=== PATIENT | female | born 1970 | race Caucasian/White ===

== ENCOUNTER 2019-04-07 15:31 | Inpatient (IN) ==
[2019-04-07] MEDS ORDERED: LEVOFLOXACIN INJ 750 MG in PREMIX 1 EACH IV STA (16:27)
[2019-04-07] MEDS ORDERED: methylPREDNISolone SOD SUC 125 MG/2 ML VIAL IV STA (16:27)
[2019-04-07] MEDS ORDERED: ALBUTEROL 2.5 MG/3 ML NEB RESP TX SCH (16:30)
[2019-04-07] MEDS ORDERED: METOPROLOL TARTRATE 5 MG/5 ML VIAL IV STA (16:33)
[2019-04-07 17:00] LABS: Basophils # 0.1 10*3/uL (0.0-0.2); Basophils % 0.4 % (0.0-0.8); Eosinophils # 0.1 10*3/uL (0.0-0.87); Eosinophils % 0.5 % (0.00-10.9); Hematocrit 47.9 VOL% (35.7-47.0); Hemoglobin 14.8 GM/DL (12.0-16.0); Immature Granulocytes % 1.3 %; Lymphocytes # 2.9 10*3/uL (1.4-4.0); Lymphocytes % 18.8 % (21.3-54.2); Mean Corpuscular HGB Conc 30.9 GM/DL (32-36); Mean Corpuscular Volume 88.7 FL (87-102); Mean Platelet Volume 11.6 FL (9.6-12.0); Platelet Count 379 T/CUMM (130-400); Red Cell Distribution Width 15.8 % (9.3-17.3); White Blood Count 15.6 T/CUMM (4-12)
[2019-04-07 17:08] LABS: PT Patient Result 11.3 SECS (9.6-12.2); Partial Thromboplastin Time 24.3 SECS (20.8-36.0)
[2019-04-07 17:16] LABS: Alanine Aminotransferase 174 U/L (13-56); Albumin 2.9 G/DL (3.4-5.0); Alkaline Phosphatase 109 U/L (45-117); Aspartate Amino Transferase 117 U/L (0-37); Blood Urea Nitrogen 24 MG/DL (7-18); Calcium 9.3 MG/DL (8.5-10.1); Estimated Glom Filtration Rate 98 ML/MIN; Glucose 97 MG/DL (74-106); Osmolality,Calculated 295.4 MOS/KG (273-304); Total Protein 8.4 G/DL (6.4-8.3); Troponin I < 0.015 NG/ML (0.00-0.045)
[2019-04-07 17:44] LABS: Apearance,Urine CLOUDY (Clear); Bacteria,Urine Moderate /HPF (Few); Bilirubin,Urine Negative (Negative); Blood, Urine Moderate mg/dL (Negative); Glucose,Urine (UA) Negative (Negative); Ketones,Urine Negative (Negative); Nitrite,Urine Positive (Negative); Protein,Urine >=500 MG/DL; RBC,Urine 17 /HPF (0-4); Urine Color Amber (Yellow); Urine Specific Gravity 1.011 (1.001-1.035); Urine Urobilinogen < 2.0 EU/DL (0.2-1.0); WBC,Urine 1133 /HPF (0-6)
[2019-04-07 17:48] LABS: Lymphocytes 16 % (20-55); Segmented Neutrophils 77 % (50-85)
[2019-04-07 17:49] LABS: Giant Platelets 1+; Platelet Estimate Adequate; Total Cells Counted 100
[2019-04-07] MEDS ORDERED: ONDANSETRON 4 MG/2 ML VIAL IV PRN (18:35)
[2019-04-07] MEDS: ALBUTEROL/IPRATROPIUM 3 ML NEB RESP TX SCH (19:15)
[2019-04-07] MEDS: DEXTROSE 5% NACL 0.45% 1,000 ML IV SCH (21:31)
[2019-04-07] MEDS: ENOXAPARIN 40 MG/0.4 ML SYRINGE SUBCUT SCH (21:31)
[2019-04-07] MEDS: tiZANidine 4 MG TABLET PO SCH (23:16)
[2019-04-07] MEDS: BACLOFEN 10 MG TABLET PO SCH (23:16)
[2019-04-07] MEDS: MEROPENEM 500 MG in SODIUM CHLORIDE 0.9% 100 ML IV SCH (23:16)
[2019-04-08] MEDS: ALBUTEROL/IPRATROPIUM 3 ML NEB RESP TX SCH ×4 (00:31→19:28)
[2019-04-08] MEDS: ACETAMINOPHEN 325 MG/10.15 ML UDCUP PO PRN ×2 (02:22→22:00)
[2019-04-08] MEDS: MEROPENEM 500 MG in SODIUM CHLORIDE 0.9% 100 ML IV SCH ×4 (03:47→21:47)
[2019-04-08 06:15] LABS: Basophils % 0.2 % (0.0-0.8); Hematocrit 40.4 VOL% (35.7-47.0); Hemoglobin 12.6 GM/DL (12.0-16.0); Immature Granulocytes % 1.6 %; Immature Granulocytes Absolute 0.18 #; Lymphocytes # 1.4 10*3/uL (1.4-4.0); Lymphocytes % 12.1 % (21.3-54.2); Mean Corpuscular HGB Conc 31.2 GM/DL (32-36); Mean Corpuscular Volume 88.6 FL (87-102); Mean Platelet Volume 11.4 FL (9.6-12.0); Monocytes % 8.3 % (1.7-12.7); Neutrophils % 77.8 % (38.7-73.9); Platelet Count 305 T/CUMM (130-400); Red Blood Count 4.56 MC/CUMM (3.8-5.5); Red Cell Distribution Width 15.6 % (9.3-17.3); White Blood Count 11.3 T/CUMM (4-12)
[2019-04-08 06:27] LABS: Calcium 8.5 MG/DL (8.5-10.1); Osmolality,Calculated 296.7 MOS/KG (273-304)
[2019-04-08 06:36] LABS: Hypochromasia 1+; Microcytosis 1+
[2019-04-08 06:37] LABS: Platelet Estimate Normal
[2019-04-08] MEDS: BACLOFEN 10 MG TABLET PO SCH ×3 (10:46→21:44)
[2019-04-08] MEDS: DEXTROSE 5% NACL 0.45% 1,000 ML IV SCH (10:48)
[2019-04-08] MEDS: AZITHROMYCIN INJ 500 MG in SODIUM CHLORIDE 0.9% 250 ML IV SCH (11:24)
[2019-04-08] MEDS ORDERED: INFLUENZA VIRUS VACCINE 0.5 ML SYRINGE IM ONE (11:43)
[2019-04-08] MEDS: ENOXAPARIN 40 MG/0.4 ML SYRINGE SUBCUT SCH (18:09)
[2019-04-08] MEDS: tiZANidine 4 MG TABLET PO SCH (21:44)
[2019-04-08] MEDS: NYSTATIN 500,000 UNIT/5 ML UDCUP SWISH/SWAL SCH (21:45)
[2019-04-09] MEDS: ALBUTEROL/IPRATROPIUM 3 ML NEB RESP TX SCH ×4 (00:30→19:59)
[2019-04-09] MEDS: MEROPENEM 500 MG in SODIUM CHLORIDE 0.9% 100 ML IV SCH ×4 (02:29→21:42)
[2019-04-09] MEDS: DEXTROSE 5% NACL 0.45% 1,000 ML IV SCH ×2 (02:29→19:39)
[2019-04-09 05:56] LABS: Basophils % 0.1 % (0.0-0.8); Eosinophils # 0.1 10*3/uL (0.0-0.87); Eosinophils % 0.5 % (0.00-10.9); Hematocrit 38.9 VOL% (35.7-47.0); Immature Granulocytes % 0.8 %; Immature Granulocytes Absolute 0.14 #; Lymphocytes # 2.3 10*3/uL (1.4-4.0); Lymphocytes % 13.7 % (21.3-54.2); Mean Corpuscular HGB Conc 30.8 GM/DL (32-36); Mean Corpuscular Volume 90.5 FL (87-102); Mean Platelet Volume 12.3 FL (9.6-12.0); Monocytes % 5.8 % (1.7-12.7); Neutrophils % 79.1 % (38.7-73.9); Platelet Count 242 T/CUMM (130-400); Red Cell Distribution Width 15.9 % (9.3-17.3); White Blood Count 16.6 T/CUMM (4-12)
[2019-04-09 06:10] LABS: Calcium 8.2 MG/DL (8.5-10.1); Osmolality,Calculated 299.1 MOS/KG (273-304)
[2019-04-09] MEDS: NYSTATIN 500,000 UNIT/5 ML UDCUP SWISH/SWAL SCH ×4 (08:48→20:39)
[2019-04-09] MEDS: BACLOFEN 10 MG TABLET PO SCH ×3 (08:48→20:36)
[2019-04-09] MEDS: ACETAMINOPHEN 325 MG/10.15 ML UDCUP PO PRN (08:53)
[2019-04-09] MEDS: AZITHROMYCIN INJ 500 MG in SODIUM CHLORIDE 0.9% 250 ML IV SCH (10:03)
[2019-04-09] MEDS ORDERED: SODIUM PHOSPHATE ENEMA 133 ML BOTTLE RECTAL ONE (14:59)
[2019-04-09] MEDS: ENOXAPARIN 40 MG/0.4 ML SYRINGE SUBCUT SCH (18:08)
[2019-04-09] MEDS: POTASSIUM BICARB EFFERVESCENT 25 MEQ TABLET PO SCH (20:35)
[2019-04-09] MEDS: LEVOFLOXACIN INJ 500 MG in PREMIX 1 EACH IV SCH (20:35)
[2019-04-09] MEDS: tiZANidine 4 MG TABLET PO SCH (20:38)
[2019-04-10] MEDS: ALBUTEROL/IPRATROPIUM 3 ML NEB RESP TX SCH ×4 (00:10→19:29)
[2019-04-10] MEDS: MEROPENEM 500 MG in SODIUM CHLORIDE 0.9% 100 ML IV SCH ×2 (04:05→09:18)
[2019-04-10 05:39] LABS: Basophils % 0.1 % (0.0-0.8); Eosinophils # 0.3 10*3/uL (0.0-0.87); Eosinophils % 3.1 % (0.00-10.9); Hematocrit 35.7 VOL% (35.7-47.0); Immature Granulocytes % 0.8 %; Immature Granulocytes Absolute 0.08 #; Lymphocytes % 10.1 % (21.3-54.2); Mean Corpuscular HGB Conc 30.8 GM/DL (32-36); Mean Corpuscular Volume 89.9 FL (87-102); Mean Platelet Volume 12.1 FL (9.6-12.0); Monocytes % 7.3 % (1.7-12.7); Neutrophils % 78.6 % (38.7-73.9); Platelet Count 200 T/CUMM (130-400); Red Blood Count 3.97 MC/CUMM (3.8-5.5); Red Cell Distribution Width 15.7 % (9.3-17.3); White Blood Count 9.4 T/CUMM (4-12)
[2019-04-10 06:26] LABS: Calcium 7.8 MG/DL (8.5-10.1); Osmolality,Calculated 292.6 MOS/KG (273-304)
[2019-04-10] MEDS: POTASSIUM BICARB EFFERVESCENT 25 MEQ TABLET PO SCH ×2 (09:19→20:43)
[2019-04-10] MEDS: BACLOFEN 10 MG TABLET PO SCH ×3 (09:21→20:43)
[2019-04-10] MEDS: NYSTATIN 500,000 UNIT/5 ML UDCUP SWISH/SWAL SCH ×4 (09:24→20:43)
[2019-04-10] MEDS: DEXTROSE 5% NACL 0.45% 1,000 ML IV SCH (16:38)
[2019-04-10] MEDS: ENOXAPARIN 40 MG/0.4 ML SYRINGE SUBCUT SCH (18:06)
[2019-04-10] MEDS: LEVOFLOXACIN INJ 500 MG in PREMIX 1 EACH IV SCH (20:42)
[2019-04-10] MEDS: tiZANidine 4 MG TABLET PO SCH (20:43)
[2019-04-11] MEDS: ALBUTEROL/IPRATROPIUM 3 ML NEB RESP TX SCH ×2 (00:50→07:03)
[2019-04-11] MEDS: DEXTROSE 5% NACL 0.45% 1,000 ML IV SCH ×2 (04:38→05:58)
[2019-04-11 05:50] LABS: Basophils % 0.1 % (0.0-0.8); Eosinophils # 0.5 10*3/uL (0.0-0.87); Eosinophils % 3.2 % (0.00-10.9); Hematocrit 35.8 VOL% (35.7-47.0); Hemoglobin 11.2 GM/DL (12.0-16.0); Immature Granulocytes % 0.7 %; Immature Granulocytes Absolute 0.11 #; Lymphocytes # 1.8 10*3/uL (1.4-4.0); Mean Corpuscular HGB Conc 31.3 GM/DL (32-36); Mean Corpuscular Volume 88.2 FL (87-102); Mean Platelet Volume 12.5 FL (9.6-12.0); Monocytes % 5.8 % (1.7-12.7); Neutrophils % 78.2 % (38.7-73.9); Platelet Count 206 T/CUMM (130-400); Red Blood Count 4.06 MC/CUMM (3.8-5.5); Red Cell Distribution Width 15.8 % (9.3-17.3); White Blood Count 15.2 T/CUMM (4-12)
[2019-04-11 06:36] LABS: Calcium 7.8 MG/DL (8.5-10.1)
[2019-04-11] MEDS: BACLOFEN 10 MG TABLET PO SCH (10:23)
[2019-04-11] MEDS: NYSTATIN 500,000 UNIT/5 ML UDCUP SWISH/SWAL SCH (10:23)
[2019-04-11] MEDS: POTASSIUM BICARB EFFERVESCENT 25 MEQ TABLET PO SCH (10:23)
[2019-04-11 12:07] VITALS: BP 132/72
[2019-04-11] MEDS ORDERED: TAMSULOSIN 0.4 MG CAPSULE PO SCH (21:00)
[2019-04-12] MEDS ORDERED: LEVOFLOXACIN 500 MG TABLET PO SCH (09:00)
== END 2019-04-11 12:13 | disposition home health service (06) | DRG 193 ==
LOC: N.ED 15:31 → N.EDINP 18:01 → N.2E 21:00
PROVIDERS: ADMIT Hospitalist; ATTEND Hospitalist

== ENCOUNTER 2022-04-19 12:09 | Inpatient (IN) ==
[2022-04-19] MEDS ORDERED: NOREPINEPHRINE 4 MG/4 ML VIAL IV ONE (12:36)
[2022-04-19] MEDS: NOREPINEPHRINE 8 MG in SODIUM CHLORIDE 0.9% 242 ML IV PRN ×2 (12:50→20:52)
[2022-04-19] MEDS ORDERED: ROCURONIUM 100 MG/10 ML VIAL IV STA (12:56)
[2022-04-19] MEDS ORDERED: LACTATED RINGERS 2,100 ML IV ONE (12:56)
[2022-04-19] MEDS ORDERED: ETOMIDATE 20 MG/10 ML VIAL IV STA (12:56)
[2022-04-19] MEDS ORDERED: PIPERACILLIN/TAZOBACTAM 3,375 MG in SODIUM CHLORIDE 0.9% 100 ML IV STA (13:02)
[2022-04-19] MEDS ORDERED: VANCOMYCIN INJ 1,000 MG in SODIUM CHLORIDE 0.9% 250 ML IV STA (13:02)
[2022-04-19 13:09] LABS: Basophils # 0.1 10*3/uL (0.0-0.2); Basophils % 0.3 % (0.0-0.8); Eosinophils # 0.1 10*3/uL (0.0-0.87); Eosinophils % 0.4 % (0.00-10.9); Hematocrit 50.5 VOL% (35.7-47.0); Hemoglobin 16.6 GM/DL (12.0-16.0); Immature Granulocytes % 0.8 %; Immature Granulocytes Absolute 0.18 #; Lymphocytes # 1.7 10*3/uL (1.4-4.0); Lymphocytes % 7.8 % (21.3-54.2); Mean Corpuscular HGB Conc 32.9 GM/DL (32-36); Mean Corpuscular Volume 85.7 FL (87-102); Mean Platelet Volume 12.5 FL (9.6-12.0); Monocytes # 1.4 10*3/uL (0.11-0.8); Monocytes % 6.5 % (1.7-12.7); Neutrophils % 84.2 % (38.7-73.9); Platelet Count 321 T/CUMM (130-400); Red Blood Count 5.89 MC/CUMM (3.8-5.5); Red Cell Distribution Width 14.6 % (9.3-17.3); White Blood Count 21.8 T/CUMM (4-12)
[2022-04-19 13:20] LABS: INR 2.1; PT Patient Result 21.7 SECS (10.1-12.1)
[2022-04-19 13:27] LABS: Albumin 2.4 G/DL (3.4-5.0); Bilirubin,Total 0.9 MG/DL (0.20-1.00); Calcium 8.8 MG/DL (8.5-10.1); Total Protein 5.7 G/DL (6.4-8.2)
[2022-04-19 14:02] LABS: Band Neutrophils 12 % (0-10); Burr Cells Few; Lymphocytes 8 % (20-55); Ovalocytes Slight; Platelet Estimate Increased
[2022-04-19 14:03] LABS: Total Cells Counted 100
[2022-04-19 14:20] LABS: Bacteria,Urine Few /HPF (Few); Mucus,Urine Many /LPF (Occasional); Urine Appearance Cloudy (Clear); Urine Color Brown (Yellow)
[2022-04-19 14:21] LABS: Bilirubin,Urine Moderate mg/dL (Negative); Blood, Urine Trace mg/dL (Negative); Glucose,Urine (UA) Negative (Negative); Ketones,Urine Trace mg/dL (Negative); Nitrite,Urine Positive (Negative); Protein,Urine >=300 mg/dL (Negative); Urine Specific Gravity 1.015 (1.001-1.035); Urine pH >= 9.0 (4.5-8.0)
[2022-04-19] MEDS ORDERED: ALBUTEROL 2.5 MG/3 ML NEB RESP TX PRN (14:59)
[2022-04-19] MEDS: ENOXAPARIN 40 MG/0.4 ML SYRINGE SUBCUT SCH (15:25)
[2022-04-19] MEDS: PANTOPRAZOLE 40 MG VIAL IV SCH (15:25)
[2022-04-19] MEDS: LACTATED RINGERS 1,000 ML IV SCH (15:25)
[2022-04-19] MEDS: HYDROCORTISONE 100 MG VIAL IV SCH (15:26)
[2022-04-19] MEDS ORDERED: MIDAZOLAM DRIP 100 MG/100 ML PREMIX IV PRN (18:36)
[2022-04-19] MEDS ORDERED: MIDAZOLAM 10 MG/2 ML VIAL IV STA (18:36)
[2022-04-19] MEDS: LEVOFLOXACIN INJ 500 MG/100 ML PREMIX IV SCH (20:27)
[2022-04-19 22:15] LABS: Arterial Base Excess iSTAT 1 MMOL/L (-2.5-2.5); Arterial Bicarbonate iSTAT 24.3 MMOL/L (20-26); Arterial O2 Saturation iSTAT 99 % (95-100); Arterial PCO2 iSTAT 34 MM HG (35-48); Arterial PO2 iSTAT 135 MM HG (80-95); Arterial Total CO2 iSTAT 25 MMO/L (23-27); Arterial pH iSTAT 7.465 (7.35-7.45)
[2022-04-20] MEDS: LACTATED RINGERS 1,000 ML IV SCH ×5 (00:07→23:34)
[2022-04-20] MEDS: HYDROCORTISONE 100 MG VIAL IV SCH ×4 (00:10→23:34)
[2022-04-20] MEDS: NOREPINEPHRINE 8 MG in SODIUM CHLORIDE 0.9% 242 ML IV PRN ×2 (03:08→09:23)
[2022-04-20 05:42] LABS: Basophils % 0.2 % (0.0-0.8); Eosinophils # 0.1 10*3/uL (0.0-0.87); Eosinophils % 0.6 % (0.00-10.9); Hematocrit 39.1 VOL% (35.7-47.0); Hemoglobin 12.6 GM/DL (12.0-16.0); Immature Granulocytes % 1.7 %; Lymphocytes % 4.4 % (21.3-54.2); Mean Corpuscular HGB Conc 32.2 GM/DL (32-36); Mean Corpuscular Volume 88.7 FL (87-102); Mean Platelet Volume 12.7 FL (9.6-12.0); Monocytes # 0.7 10*3/uL (0.11-0.8); Monocytes % 2.9 % (1.7-12.7); Neutrophils % 90.2 % (38.7-73.9); Platelet Count 269 T/CUMM (130-400); Red Blood Count 4.41 MC/CUMM (3.8-5.5); Red Cell Distribution Width 14.7 % (9.3-17.3); White Blood Count 23.3 T/CUMM (4-12)
[2022-04-20 06:10] LABS: Albumin 1.9 G/DL (3.4-5.0); Bilirubin,Total 0.9 MG/DL (0.20-1.00); Calcium 8.1 MG/DL (8.5-10.1); Osmolality,Calculated 296.3 MOS/KG (273-304); Potassium 3.1 MMOL/L (3.5-5.1); Thyroid Stimulating Hormone 0.716 uIU/ml (0.358-3.74); Total Protein 5.4 G/DL (6.4-8.2)
[2022-04-20 06:13] LABS: Lymphocytes 2 % (20-55); Platelet Estimate Adequate; Total Cells Counted 100
[2022-04-20 11:18] LABS: Arterial Base Excess iSTAT -2 MMOL/L (-2.5-2.5); Arterial Bicarbonate iSTAT 21.9 MMOL/L (20-26); Arterial O2 Saturation iSTAT 74 % (95-100); Arterial PCO2 iSTAT 34 MM HG (35-48); Arterial PO2 iSTAT 38 MM HG (80-95); Arterial Total CO2 iSTAT 23 MMO/L (23-27); Arterial pH iSTAT 7.418 (7.35-7.45)
[2022-04-20] MEDS: PANTOPRAZOLE 40 MG VIAL IV SCH (15:15)
[2022-04-20] MEDS: ENOXAPARIN 40 MG/0.4 ML SYRINGE SUBCUT SCH (15:19)
[2022-04-20 18:23] LABS: ABG Base Excess -2.9 MMOL/L (-2.5-2.5); ABG Oxygen Saturation 99.4 % (95-100); ABG PCO2 27.9 MM HG (35-48); ABG PH 7.455 (7.35-7.45)
[2022-04-20] MEDS: LEVOFLOXACIN INJ 500 MG/100 ML PREMIX IV SCH (20:35)
[2022-04-21 04:19] LABS: ABG Base Excess -1.6 MMOL/L (-2.5-2.5); ABG HCO3 23.1 MMOL/L (20-26); ABG Oxygen Saturation 99.5 % (95-100); ABG PCO2 27.9 MM HG (35-48); ABG PH 7.483 (7.35-7.45); ABG TCO2 18.8 MMOL/L (23-27)
[2022-04-21 04:22] LABS: Basophils % 0.1 % (0.0-0.8); Hematocrit 31.8 VOL% (35.7-47.0); Hemoglobin 10.4 GM/DL (12.0-16.0); Immature Granulocytes % 0.8 %; Immature Granulocytes Absolute 0.11 #; Lymphocytes # 0.7 10*3/uL (1.4-4.0); Lymphocytes % 5.2 % (21.3-54.2); Mean Corpuscular HGB Conc 32.7 GM/DL (32-36); Mean Corpuscular Volume 87.1 FL (87-102); Mean Platelet Volume 12.3 FL (9.6-12.0); Monocytes # 0.5 10*3/uL (0.11-0.8); Monocytes % 3.5 % (1.7-12.7); Neutrophils % 90.4 % (38.7-73.9); Platelet Count 157 T/CUMM (130-400); Red Blood Count 3.65 MC/CUMM (3.8-5.5); Red Cell Distribution Width 14.6 % (9.3-17.3); White Blood Count 13.6 T/CUMM (4-12)
[2022-04-21 04:42] LABS: Albumin 1.7 G/DL (3.4-5.0); Bilirubin,Total 0.6 MG/DL (0.20-1.00); Calcium 8.1 MG/DL (8.5-10.1); Osmolality,Calculated 298.1 MOS/KG (273-304); Phosphorous 1.1 MG/DL (2.5-4.9); Potassium 3.2 MMOL/L (3.5-5.1); Total Protein 4.9 G/DL (6.4-8.2)
[2022-04-21] MEDS: LACTATED RINGERS 1,000 ML IV SCH ×3 (06:20→23:24)
[2022-04-21] MEDS: NOREPINEPHRINE 8 MG in SODIUM CHLORIDE 0.9% 242 ML IV PRN (06:49)
[2022-04-21] MEDS: HYDROCORTISONE 100 MG VIAL IV SCH ×3 (08:58→23:25)
[2022-04-21] MEDS ORDERED: POTASSIUM PHOSPHATE 30 MMOL in SODIUM CHLORIDE 0.9% 250 ML IV ONE (09:00)
[2022-04-21] MEDS: PANTOPRAZOLE 40 MG VIAL IV SCH (16:38)
[2022-04-21] MEDS: ENOXAPARIN 40 MG/0.4 ML SYRINGE SUBCUT SCH (16:43)
[2022-04-21] MEDS: LEVOFLOXACIN INJ 500 MG/100 ML PREMIX IV SCH (20:16)
[2022-04-22 04:00] LABS: Arterial Base Excess iSTAT 3 MMOL/L (-2.5-2.5); Arterial Bicarbonate iSTAT 25.6 MMOL/L (20-26); Arterial O2 Saturation iSTAT 98 % (95-100); Arterial PCO2 iSTAT 31 MM HG (35-48); Arterial PO2 iSTAT 95 MM HG (80-95); Arterial Total CO2 iSTAT 26 MMO/L (23-27)
[2022-04-22 04:41] LABS: Basophils % 0.3 % (0.0-0.8); Hematocrit 31.2 VOL% (35.7-47.0); Hemoglobin 9.9 GM/DL (12.0-16.0); Immature Granulocytes Absolute 0.08 #; Lymphocytes # 0.6 10*3/uL (1.4-4.0); Lymphocytes % 7.4 % (21.3-54.2); Mean Corpuscular HGB Conc 31.7 GM/DL (32-36); Mean Corpuscular Volume 87.6 FL (87-102); Mean Platelet Volume 12.5 FL (9.6-12.0); Monocytes # 0.5 10*3/uL (0.11-0.8); Monocytes % 6.9 % (1.7-12.7); Neutrophils % 84.4 % (38.7-73.9); Platelet Count 129 T/CUMM (130-400); Red Blood Count 3.56 MC/CUMM (3.8-5.5); Red Cell Distribution Width 14.6 % (9.3-17.3); White Blood Count 7.8 T/CUMM (4-12)
[2022-04-22 04:50] LABS: Calcium 8.5 MG/DL (8.5-10.1); Osmolality,Calculated 301.1 MOS/KG (273-304); Potassium 3.9 MMOL/L (3.5-5.1)
[2022-04-22] MEDS: LACTATED RINGERS 1,000 ML IV SCH ×3 (07:42→23:30)
[2022-04-22] MEDS: HYDROCORTISONE 100 MG VIAL IV SCH ×3 (08:22→20:57)
[2022-04-22] MEDS ORDERED: MAGNESIUM SULF RIDER 2 GM/50 ML PREMIX IV ONE (08:30)
[2022-04-22] MEDS ORDERED: POTASSIUM PHOSPHATE 30 MMOL in SODIUM CHLORIDE 0.9% 250 ML IV ONE (09:00)
[2022-04-22] MEDS: ENOXAPARIN 40 MG/0.4 ML SYRINGE SUBCUT SCH (16:28)
[2022-04-22] MEDS: PANTOPRAZOLE 40 MG VIAL IV SCH (16:29)
[2022-04-22] MEDS: MORPHINE 2 MG/1 ML SYRINGE IV PRN (16:35)
[2022-04-22] MEDS: LEVOFLOXACIN INJ 500 MG/100 ML PREMIX IV SCH (20:59)
[2022-04-22] MEDS: tiZANidine 4 MG TABLET PO SCH (21:01)
[2022-04-22] MEDS: BACLOFEN 10 MG TABLET PO SCH (21:01)
[2022-04-23 04:15] LABS: Basophils % 0.1 % (0.0-0.8); Hematocrit 29.1 VOL% (35.7-47.0); Hemoglobin 9.4 GM/DL (12.0-16.0); Immature Granulocytes % 1.2 %; Immature Granulocytes Absolute 0.09 #; Lymphocytes % 13.4 % (21.3-54.2); Mean Corpuscular HGB Conc 32.3 GM/DL (32-36); Mean Corpuscular Volume 87.9 FL (87-102); Mean Platelet Volume 12.1 FL (9.6-12.0); Monocytes # 0.8 10*3/uL (0.11-0.8); Monocytes % 10.8 % (1.7-12.7); Neutrophils % 74.5 % (38.7-73.9); Platelet Count 120 T/CUMM (130-400); Red Blood Count 3.31 MC/CUMM (3.8-5.5); Red Cell Distribution Width 14.6 % (9.3-17.3); White Blood Count 7.6 T/CUMM (4-12)
[2022-04-23 04:27] LABS: Calcium 7.7 MG/DL (8.5-10.1); Osmolality,Calculated 293.7 MOS/KG (273-304); Potassium 3.6 MMOL/L (3.5-5.1)
[2022-04-23 04:36] LABS: Phosphorous 2.8 MG/DL (2.5-4.9)
[2022-04-23] MEDS: MORPHINE 2 MG/1 ML SYRINGE IV PRN (06:23)
[2022-04-23] MEDS: LACTATED RINGERS 1,000 ML IV SCH ×3 (07:40→23:55)
[2022-04-23] MEDS: BACLOFEN 10 MG TABLET PO SCH ×3 (09:43→21:07)
[2022-04-23] MEDS: HYDROCORTISONE 100 MG VIAL IV SCH ×2 (09:43→21:07)
[2022-04-23] MEDS: CITALOPRAM 40 MG TABLET PO SCH (11:14)
[2022-04-23] MEDS: ENOXAPARIN 40 MG/0.4 ML SYRINGE SUBCUT SCH (15:47)
[2022-04-23] MEDS: PANTOPRAZOLE 40 MG VIAL IV SCH (15:47)
[2022-04-23] MEDS: tiZANidine 4 MG TABLET PO SCH (21:07)
[2022-04-23] MEDS: LEVOFLOXACIN INJ 500 MG/100 ML PREMIX IV SCH (21:08)
[2022-04-24 05:01] LABS: Basophils % 0.1 % (0.0-0.8); Hematocrit 32.2 VOL% (35.7-47.0); Hemoglobin 10.4 GM/DL (12.0-16.0); Immature Granulocytes % 1.1 %; Immature Granulocytes Absolute 0.11 #; Lymphocytes % 9.8 % (21.3-54.2); Mean Corpuscular HGB Conc 32.3 GM/DL (32-36); Mean Corpuscular Volume 88.2 FL (87-102); Mean Platelet Volume 11.8 FL (9.6-12.0); Monocytes # 0.9 10*3/uL (0.11-0.8); Platelet Count 155 T/CUMM (130-400); Red Blood Count 3.65 MC/CUMM (3.8-5.5); Red Cell Distribution Width 14.4 % (9.3-17.3)
[2022-04-24 05:28] LABS: Alanine Aminotransferase 15 U/L (13-56); Albumin 1.6 G/DL (3.4-5.0); Alkaline Phosphatase 37 U/L (45-117); Aspartate Amino Transferase 14 U/L (0-37); Blood Urea Nitrogen 9 MG/DL (7-18); Calcium 7.9 MG/DL (8.5-10.1); Carbon Dioxide 30 MMOL/L (21-32); Chloride 111 MMOL/L (98-107); Glucose 174 MG/DL (74-106); Osmolality,Calculated 292.6 MOS/KG (273-304); Phosphorous 2.7 MG/DL (2.5-4.9); Sodium 146 MMOL/L (136-145); Total Protein 4.3 G/DL (6.4-8.2)
[2022-04-24] MEDS: LACTATED RINGERS 1,000 ML IV SCH (07:55)
[2022-04-24] MEDS: BACLOFEN 10 MG TABLET PO SCH ×3 (08:12→20:49)
[2022-04-24] MEDS: CITALOPRAM 40 MG TABLET PO SCH (08:12)
[2022-04-24] MEDS: HYDROCORTISONE 100 MG VIAL IV SCH (08:13)
[2022-04-24] MEDS: ENOXAPARIN 40 MG/0.4 ML SYRINGE SUBCUT SCH (14:26)
[2022-04-24] MEDS: PANTOPRAZOLE 40 MG VIAL IV SCH (14:27)
[2022-04-24] MEDS ORDERED: FLUCONAZOLE 40 MG/ML 35 ML/BOTTLE PO ONE (19:38)
[2022-04-24] MEDS: tiZANidine 4 MG TABLET PO SCH (20:48)
[2022-04-24] MEDS: ACETAMINOPHEN 325 MG/10.15 ML UDCUP PO PRN (20:49)
[2022-04-25 05:01] LABS: Alanine Aminotransferase 20 U/L (13-56); Albumin 1.5 G/DL (3.4-5.0); Alkaline Phosphatase 45 U/L (45-117); Aspartate Amino Transferase 12 U/L (0-37); Blood Urea Nitrogen 7 MG/DL (7-18); Calcium 7.6 MG/DL (8.5-10.1); Carbon Dioxide 32 MMOL/L (21-32); Chloride 112 MMOL/L (98-107); Glucose 150 MG/DL (74-106); Osmolality,Calculated 294.3 MOS/KG (273-304); Potassium 2.9 MMOL/L (3.5-5.1); Sodium 148 MMOL/L (136-145)
[2022-04-25 08:07] LABS: Basophils % 0.1 % (0.0-0.8); Eosinophils # 0.3 10*3/uL (0.0-0.87); Eosinophils % 2.3 % (0.00-10.9); Hematocrit 34.9 VOL% (35.7-47.0); Hemoglobin 11.1 GM/DL (12.0-16.0); Immature Granulocytes % 1.4 %; Immature Granulocytes Absolute 0.16 #; Lymphocytes # 2.5 10*3/uL (1.4-4.0); Lymphocytes % 21.8 % (21.3-54.2); Mean Corpuscular HGB Conc 31.8 GM/DL (32-36); Mean Corpuscular Volume 88.6 FL (87-102); Mean Platelet Volume 12.7 FL (9.6-12.0); Monocytes # 1.3 10*3/uL (0.11-0.8); Monocytes % 11.2 % (1.7-12.7); Neutrophils % 63.2 % (38.7-73.9); Platelet Count 214 T/CUMM (130-400); Red Blood Count 3.94 MC/CUMM (3.8-5.5); Red Cell Distribution Width 14.5 % (9.3-17.3); White Blood Count 11.3 T/CUMM (4-12)
[2022-04-25] MEDS: BACLOFEN 10 MG TABLET PO SCH ×3 (09:30→20:16)
[2022-04-25] MEDS: POTASSIUM BICARB EFFERVESCENT 20 MEQ TAB.EFF PER TUBE PRN ×4 (09:31→20:17)
[2022-04-25] MEDS: CITALOPRAM 40 MG TABLET PO SCH (09:31)
[2022-04-25] MEDS: ENOXAPARIN 40 MG/0.4 ML SYRINGE SUBCUT SCH (15:46)
[2022-04-25] MEDS: PANTOPRAZOLE 40 MG VIAL IV SCH (15:53)
[2022-04-25] MEDS: tiZANidine 4 MG TABLET PO SCH (20:16)
[2022-04-25] MEDS: ACETAMINOPHEN 325 MG/10.15 ML UDCUP PO PRN (23:38)
[2022-04-26 03:30] LABS: Basophils % 0.1 % (0.0-0.8); Eosinophils # 0.4 10*3/uL (0.0-0.87); Eosinophils % 1.8 % (0.00-10.9); Hematocrit 34.1 VOL% (35.7-47.0); Hemoglobin 10.7 GM/DL (12.0-16.0); Immature Granulocytes % 1.7 %; Immature Granulocytes Absolute 0.38 #; Lymphocytes # 1.9 10*3/uL (1.4-4.0); Lymphocytes % 8.4 % (21.3-54.2); Mean Corpuscular HGB Conc 31.4 GM/DL (32-36); Mean Corpuscular Volume 89.7 FL (87-102); Mean Platelet Volume 11.4 FL (9.6-12.0); Monocytes # 1.5 10*3/uL (0.11-0.8); Monocytes % 6.8 % (1.7-12.7); Neutrophils % 81.2 % (38.7-73.9); Platelet Count 300 T/CUMM (130-400); Red Cell Distribution Width 14.7 % (9.3-17.3); White Blood Count 21.9 T/CUMM (4-12)
[2022-04-26 03:39] LABS: Blood Urea Nitrogen 6 MG/DL (7-18); Calcium 7.7 MG/DL (8.5-10.1); Carbon Dioxide 31 MMOL/L (21-32); Chloride 109 MMOL/L (98-107); Glucose 91 MG/DL (74-106); Osmolality,Calculated 283.8 MOS/KG (273-304); Potassium 4.1 MMOL/L (3.5-5.1); Sodium 144 MMOL/L (136-145)
[2022-04-26 03:41] LABS: INR 1.1; PT Patient Result 12.2 SECS (10.1-12.1)
[2022-04-26 03:48] LABS: Eosinophils 1 % (0-10); Hypochromia Slight; Lymphocytes 3 % (20-55); Total Cells Counted 100
[2022-04-26 03:49] LABS: Microcytosis 1+
[2022-04-26] MEDS ORDERED: SODIUM CHLORIDE 0.9% 250 ML IV ONE (05:50)
[2022-04-26] MEDS: LACTATED RINGERS 1,000 ML IV SCH ×2 (06:51→09:46)
[2022-04-26] MEDS ORDERED: LEVOFLOXACIN INJ 500 MG/100 ML PREMIX IV ONE (08:30)
[2022-04-26] MEDS: MEROPENEM 500 MG in SODIUM CHLORIDE 0.9% 100 ML IV SCH ×3 (09:45→21:49)
[2022-04-26] MEDS ORDERED: LIDOCAINE 2% 5 ML VIAL ONE (10:49)
[2022-04-26] MEDS ORDERED: propofoL 200 MG/20 ML VIAL IV ONE (10:49)
[2022-04-26] MEDS ORDERED: ETOMIDATE 20 MG/10 ML VIAL IV ONE (10:49)
[2022-04-26] MEDS ORDERED: PHENYLEPHRINE 1 MG/10 ML SYRINGE IV ONE (10:49)
[2022-04-26] MEDS: BACLOFEN 10 MG TABLET PO SCH ×3 (13:29→21:50)
[2022-04-26] MEDS: HYDROCORTISONE 100 MG VIAL IV SCH ×2 (13:31→21:50)
[2022-04-26] MEDS: PANTOPRAZOLE 40 MG VIAL IV SCH (16:00)
[2022-04-26] MEDS: tiZANidine 4 MG TABLET PO SCH (21:50)
[2022-04-27] MEDS: HYDROCORTISONE 100 MG VIAL IV SCH ×2 (03:50→17:14)
[2022-04-27] MEDS: MEROPENEM 500 MG in SODIUM CHLORIDE 0.9% 100 ML IV SCH ×4 (03:54→23:16)
[2022-04-27 05:05] LABS: Basophils % 0.1 % (0.0-0.8); Hematocrit 31.8 VOL% (35.7-47.0); Hemoglobin 9.9 GM/DL (12.0-16.0); Immature Granulocytes % 2.2 %; Immature Granulocytes Absolute 0.54 #; Lymphocytes # 0.8 10*3/uL (1.4-4.0); Lymphocytes % 3.4 % (21.3-54.2); Mean Corpuscular HGB Conc 31.1 GM/DL (32-36); Mean Corpuscular Volume 91.4 FL (87-102); Mean Platelet Volume 11.5 FL (9.6-12.0); Monocytes # 0.8 10*3/uL (0.11-0.8); Monocytes % 3.2 % (1.7-12.7); Neutrophils % 91.1 % (38.7-73.9); Platelet Count 281 T/CUMM (130-400); Red Blood Count 3.48 MC/CUMM (3.8-5.5); Red Cell Distribution Width 15.5 % (9.3-17.3)
[2022-04-27 05:26] LABS: Blood Urea Nitrogen 8 MG/DL (7-18); Carbon Dioxide 29 MMOL/L (21-32); Chloride 109 MMOL/L (98-107); Glucose 102 MG/DL (74-106); Lymphocytes 2 % (20-55); Microcytosis 1+; Potassium 3.9 MMOL/L (3.5-5.1); Sodium 143 MMOL/L (136-145); Total Cells Counted 100
[2022-04-27 05:27] LABS: Hypochromia 1+; Platelet Estimate Normal
[2022-04-27 05:28] LABS: Polychromasia Slight
[2022-04-27] MEDS: LACTATED RINGERS 1,000 ML IV SCH (09:31)
[2022-04-27] MEDS: BACLOFEN 10 MG TABLET PO SCH ×3 (09:41→21:07)
[2022-04-27] MEDS: PANTOPRAZOLE 40 MG VIAL IV SCH (15:20)
[2022-04-27] MEDS: SULFAMETHOX/TRIMETHOPRIM 800-160 MG TABLET PO SCH (21:07)
[2022-04-27] MEDS: tiZANidine 4 MG TABLET PO SCH (21:07)
[2022-04-28] MEDS: HYDROCORTISONE 100 MG VIAL IV SCH (04:38)
[2022-04-28] MEDS: MEROPENEM 500 MG in SODIUM CHLORIDE 0.9% 100 ML IV SCH ×2 (04:38→09:08)
[2022-04-28 05:35] LABS: Basophils % 0.1 % (0.0-0.8); Hematocrit 28.4 VOL% (35.7-47.0); Hemoglobin 9.3 GM/DL (12.0-16.0); Immature Granulocytes % 1.1 %; Immature Granulocytes Absolute 0.19 #; Lymphocytes # 0.8 10*3/uL (1.4-4.0); Lymphocytes % 4.5 % (21.3-54.2); Mean Corpuscular HGB Conc 32.7 GM/DL (32-36); Mean Corpuscular Volume 89.3 FL (87-102); Mean Platelet Volume 11.5 FL (9.6-12.0); Monocytes # 1.3 10*3/uL (0.11-0.8); Monocytes % 7.3 % (1.7-12.7); Platelet Count 391 T/CUMM (130-400); Red Blood Count 3.18 MC/CUMM (3.8-5.5); Red Cell Distribution Width 15.4 % (9.3-17.3); White Blood Count 17.5 T/CUMM (4-12)
[2022-04-28 05:51] LABS: Blood Urea Nitrogen 13 MG/DL (7-18); Carbon Dioxide 32 MMOL/L (21-32); Chloride 108 MMOL/L (98-107); Glucose 245 MG/DL (74-106); Osmolality,Calculated 293.8 MOS/KG (273-304); Potassium 3.7 MMOL/L (3.5-5.1); Sodium 144 MMOL/L (136-145)
[2022-04-28 06:02] LABS: Lymphocytes 1 % (20-55); Total Cells Counted 100
[2022-04-28 06:03] LABS: Hypochromia Slight; Microcytosis Slight; Platelet Estimate Adequate
[2022-04-28] MEDS: BACLOFEN 10 MG TABLET PO SCH (09:02)
[2022-04-28] MEDS: SULFAMETHOX/TRIMETHOPRIM 800-160 MG TABLET PO SCH (09:02)
[2022-04-28] MEDS: POTASSIUM BICARB EFFERVESCENT 20 MEQ TAB.EFF PER TUBE PRN (09:02)
[2022-04-28] MEDS: CITALOPRAM 40 MG TABLET PO SCH (09:03)
[2022-04-28] MEDS: LACTATED RINGERS 1,000 ML IV SCH (09:33)
[2022-04-28 11:37] VITALS: BP 112/52
[2022-04-28] MEDS ORDERED: CEFUROXIME 500 MG TABLET PO SCH (21:00)
== END 2022-04-28 13:56 | disposition home health service (06) | DRG 698 ==
LOC: EDUNIT# → EDBD → N.ED 12:09 → N.EDINP 14:59 → SUATTDRO 14:59 → N.EDINP 18:45 → N.CC 19:01 → N.5E 04-27 13:20
PROVIDERS: ADMIT Internal Medicine; ATTEND Internal Medicine
PROC: EGDWPEG (ICD-10-PCS; 2022-04-26 08:35)